=== PATIENT | male | born 1955 | race Caucasian/White ===

== ENCOUNTER → 2021-05-25 | Outpatient (CLI) | payer OTHER ==
[~2021-05-25] MED LIST: ALLERCLEAR10 MG PO; BETAPACE80 MG PO; ELIQUIS5 MG PO; GLUCOPHAGE 500500 MG PO
== END ==
LOC: KOH-I 08:50
DX: R05 Cough (principal); R91.8 Other nonspecific abnormal finding of lung field
CPT/HCPCS: 71046

== ENCOUNTER → 2021-06-07 | Outpatient (CLI) | payer OTHER | LOC: CT 08:30 | DX: R93.89 Abnormal findings on diagnostic imaging of other specified body structures (principal); R59.0 Localized enlarged lymph nodes | CPT/HCPCS: 71260; Q9967 ==

== ENCOUNTER → 2021-06-14 | Outpatient (CLI) | payer OTHER | LOC: HEART 5 08:35 | DX: R05 Cough (principal) | CPT/HCPCS: 94010; 95012 ==

== ENCOUNTER 2021-09-04 11:57 | Observation (INO) | payer OTHER ==
[~2021-09-04] VITALS: Ht 177.8 cm; Wt 100.7 kg
[2021-09-04 12:28] LABS: HEMOGLOBIN 13.6 gm/dl (14.0-17.5); RED BLOOD COUNT 4.65 M/UL (4.20-5.50); WHITE BLOOD COUNT 6.1 K/UL (4.5-11.0)
[2021-09-04 12:52] LABS: BUN/CREATININE RATIO 20 (0-10)
[2021-09-04] MEDS ORDERED: METFORMIN HCL500 MG PO (19:30)
[2021-09-04] MEDS ORDERED: PRAVASTATIN SOD10 MG PO (19:31)
[2021-09-04] MEDS ORDERED: ASPIRIN81 MG PO (19:32)
[2021-09-04] MEDS ORDERED: COZAAR 50MG TAB50 MG PO (19:33)
[2021-09-04] MEDS ORDERED: ARNUITY ELLIP200 MCG INH (21:50)
[2021-09-05 01:34] LABS: HEMOGLOBIN 12.7 gm/dl (14.0-17.5); RED BLOOD COUNT 4.29 M/UL (4.20-5.50); WHITE BLOOD COUNT 6.4 K/UL (4.5-11.0)
[2021-09-05 02:00] LABS: BUN/CREATININE RATIO 14 (0-10)
== END 2021-09-05 18:09 | disposition home or self-care (01) ==
LOC: ER1 11:57 → CDU 15:13 → MED SURG 4 19:09
PROVIDERS: Physician Assistant; Physician Assistant Medical; ADMIT Internal Medicine
DX: R55 Syncope and collapse (principal); I48.0 Paroxysmal atrial fibrillation; I10 Essential (primary) hypertension; E11.9 Type 2 diabetes mellitus without complications; E78.5 Hyperlipidemia, unspecified; R91.1 Solitary pulmonary nodule; L40.9 Psoriasis, unspecified; Z79.84 Long term (current) use of oral hypoglycemic drugs; Z79.82 Long term (current) use of aspirin; Z79.899 Other long term (current) drug therapy; Z88.1 Allergy status to other antibiotic agents; Z20.822 Contact with and (suspected) exposure to COVID-19
CPT/HCPCS: ECHO; 36415; 36600; 70450; 71045; 80053; 81001; 82009; 82533; 82550; 82553; 82803; 82962; 83874; 83880; 84439; 84443; 84484; 85025; 85379; 85610; 93005; 93270; 93306; 93880; G0378; J7040; U0002

== ENCOUNTER → 2021-09-06 | Outpatient (CLI) | payer OTHER ==
[~2021-09-06] MED LIST changes: +ARNUITY ELLIP200 MCG INH; +ASPIRIN81 MG PO; +COZAAR 50MG TAB50 MG PO; +METFORMIN HCL500 MG PO; +PRAVASTATIN SOD10 MG PO
== END ==
LOC: CT 14:00
DX: R59.0 Localized enlarged lymph nodes (principal); R93.89 Abnormal findings on diagnostic imaging of other specified body structures
CPT/HCPCS: 71250

== ENCOUNTER → 2021-10-24 | Outpatient (CLI) | payer OTHER | LOC: HEART 5 11:05 | DX: I10 Essential (primary) hypertension (principal); R06.02 Shortness of breath ==

== ENCOUNTER → 2022-04-04 | Outpatient (CLI) | payer OTHER | LOC: CT 03-27 11:00 | DX: J45.991 Cough variant asthma (principal); R59.0 Localized enlarged lymph nodes; R06.02 Shortness of breath | CPT/HCPCS: 71260; Q9967 ==